=== PATIENT | male | born 1995 | race Caucasian/White ===

== ENCOUNTER 2018-08-29 08:25 | Emergency (ER) | payer BC ==
[~2018-08-29] VITALS: Ht 198.1 cm; Wt 90.0 kg
[~2018-08-29 08:25] MED LIST: PRED20TA PO
[2018-08-29 08:29] VITALS: BP 123/85
[2018-08-29] MEDS ORDERED: AZIT250T PO (09:07)
== END 2018-08-29 09:23 | disposition home or self-care (01) ==
LOC: ER 08:27
DX: J06.9 Acute upper respiratory infection, unspecified (principal); H92.09 Otalgia, unspecified ear; F12.10 Cannabis abuse, uncomplicated; J45.909 Unspecified asthma, uncomplicated; Z88.0 Allergy status to penicillin
CPT/HCPCS: 99283

== ENCOUNTER 2019-05-08 11:45 | Emergency (ER) | payer BC, OTHER ==
[~2019-05-08] VITALS: Ht 198.1 cm; Wt 88.6 kg
[~2019-05-08 11:45] MED LIST changes: +AZIT250T PO
[2019-05-08 12:17] LABS: BASOPHILS # (AUTO) 0.1 X10'3 (0-0.2); BASOPHILS % (AUTO) 0.5 % (0-1); EOSINOPHILS % (AUTO) 0.3 % (0-6); HEMATOCRIT 42.8 % (42.0-52.0); HEMOGLOBIN 14.5 g/dl (14.0-17.9); LYMPHOCYTES # (AUTO) 1.9 X10'3 (1.1-4.8); LYMPHOCYTES % (AUTO) 16.1 % (21-51); MEAN CORPUSCULAR HEMOGLOBIN 29.7 PG (27.0-31.0); MEAN CORPUSCULAR HGB CONC 33.9 g/dL (33.0-36.5); MEAN CORPUSCULAR VOLUME 87.5 FL (78-98); MEAN PLATELET VOLUME 9.1 FL (7.4-10.4); MONOCYTES # (AUTO) 1.1 X10'3 (0-0.9); MONOCYTES % (AUTO) 8.8 % (2-12); NEUTROPHILS # (AUTO) 8.8 X10'3 (1.8-7.7); NEUTROPHILS % (AUTO) 74.3 % (42-75); PLATELET COUNT 254 X10'3 (140-440); RED BLOOD COUNT 4.89 X10'6 (4.70-6.10); WHITE BLOOD COUNT 11.9 X10'3 (4.5-11.0)
[2019-05-08 12:28] LABS: PARTIAL THROMBOPLASTIN TIME 30 SECONDS (22-32)
[2019-05-08 12:37] LABS: ALANINE AMINOTRANSFERASE 24 U/L (12-78); ALBUMIN 4.2 G/DL (3.4-5.0); ALBUMIN/GLOBULIN RATIO 1.1 (1.1-1.5); ALKALINE PHOSPHATASE 68 IU/L (46-116); ANION GAP 11 (8-16); ASPARTATE AMINO TRANSFERASE 13 U/L (10-37); BLOOD UREA NITROGEN 11 MG/DL (7-18); BUN/CREATININE RATIO 13.6 (5.4-32.0); CALCIUM 9.5 MG/DL (8.5-10.1); CHLORIDE 104 MMOL/L (99-107); CREATININE 0.81 MG/DL (0.60-1.10); GLUCOSE 90 MG/DL (70-104); POTASSIUM 3.5 MMOL/L (3.5-5.1); SODIUM 140 MMOL/L (135-145); TOTAL PROTEIN 8.2 G/DL (6.4-8.2); eGFR > 90 ML/MIN
[2019-05-08 12:46] LABS: CLARITY,URINE CLEAR (Clear); COLOR,URINE YELLOW (Yellow); GLUCOSE, URINE NEGATIVE (Neg); KETONES,URINE TRACE mg/dl (Neg); LEUKOCYTE ESTERASE ,URINE NEGATIVE (Neg); NITRITES, URINE NEGATIVE (Neg); OCCULT BLOOD,URINE NEGATIVE (Neg); PH,URINE 5.5 (4.8-8.0); PROTEIN,URINE NEGATIVE (Neg); UROBILINOGEN,URINE 0.2 E.U/dL (0.2-1.0)
[2019-05-08 12:49] LABS: UA COLLECTION TYPE VOIDED
[2019-05-08] MEDS ORDERED: AZIT-72 PO (12:49)
[2019-05-08] MEDS ORDERED: PRED20TA PO (12:49)
[2019-05-08] MEDS ORDERED: ALBU8.5H8 IH (12:49)
[2019-05-08] MEDS ORDERED: ondansetron/PF 4mg/2ml inj IV ONE (12:50)
[2019-05-08] MEDS ORDERED: normal saline 1000ML IV soln IVB ONE (12:50)
[2019-05-08 13:44] VITALS: BP 132/86
== END 2019-05-08 13:44 | disposition home or self-care (01) ==
LOC: ER 11:46
DX: J01.90 Acute sinusitis, unspecified (principal); E86.0 Dehydration; J45.909 Unspecified asthma, uncomplicated; F12.90 Cannabis use, unspecified, uncomplicated; Z98.890 Other specified postprocedural states; Z88.0 Allergy status to penicillin; Z79.2 Long term (current) use of antibiotics; Z79.899 Other long term (current) drug therapy
CPT/HCPCS: 36415; 71045; 80053; 81003; 83605; 84145; 85025; 85610; 85730; 87040; 93005; 96361; 96374; 99284; J2405; J7030

== ENCOUNTER 2019-05-10 10:26 | Emergency (ER) | payer OTHER ==
[~2019-05-10] VITALS: Ht 198.1 cm; Wt 93.1 kg
[~2019-05-10 10:26] MED LIST changes: +ALBU8.5H8 IH; +AZIT-72 PO
--- NOTE | 2019-05-10 11:02 | NUR ---
PATIENT HERE DUE TO " DISTGUSTING GREEN SECRETIONS FROM MY SINUSES" PATIENT RECENTLY HERE AND ON ZITHROMAX
[2019-05-10] MEDS ORDERED: AZIT500T9 PO (11:29)
[2019-05-10 11:56] VITALS: BP 135/69
== END 2019-05-10 11:59 | disposition home or self-care (01) ==
LOC: ER 10:27
DX: J32.9 Chronic sinusitis, unspecified (principal); J45.909 Unspecified asthma, uncomplicated; F12.90 Cannabis use, unspecified, uncomplicated; Z98.890 Other specified postprocedural states; Z88.0 Allergy status to penicillin; Z79.2 Long term (current) use of antibiotics; Z79.899 Other long term (current) drug therapy
CPT/HCPCS: 99283

== ENCOUNTER 2019-05-18 13:46 | Emergency (ER) | payer SELFPAY ==
[~2019-05-18] VITALS: Ht 200.7 cm; Wt 90.9 kg
[~2019-05-18 13:46] MED LIST changes: +AZIT500T9 PO
[2019-05-18 13:56] VITALS: BP 125/86
[2019-05-18] MEDS ORDERED: ONDA4TAB6 PO (15:05)
[2019-05-18] MEDS ORDERED: LORA10TA61 PO (15:05)
== END 2019-05-18 15:17 | disposition home or self-care (01) ==
LOC: ER 13:46
DX: J32.9 Chronic sinusitis, unspecified (principal); J45.909 Unspecified asthma, uncomplicated; F12.90 Cannabis use, unspecified, uncomplicated; Z98.890 Other specified postprocedural states; Z88.0 Allergy status to penicillin; Z79.2 Long term (current) use of antibiotics; Z79.899 Other long term (current) drug therapy
CPT/HCPCS: 99283

== ENCOUNTER → 2019-08-29 | Emergency (ER) | payer OTHER ==
[~2019-08-29] VITALS: Ht 198.1 cm; Wt 90.9 kg
[~2019-08-29] MED LIST changes: +ALBU8.5H8 INH; -AZIT-72 PO; +IBUP-1984 PO; +LORA10TA61 PO; +ONDA4TAB6 PO
[2019-08-29 09:31] VITALS: BP 129/89
== END | disposition home or self-care (01) ==
LOC: ER 09:22
DX: M25.532 Pain in left wrist (principal); J45.909 Unspecified asthma, uncomplicated; F12.90 Cannabis use, unspecified, uncomplicated; F10.99 Alcohol use, unspecified with unspecified alcohol-induced disorder; Z98.890 Other specified postprocedural states; Z88.0 Allergy status to penicillin; Z79.899 Other long term (current) drug therapy; X50.0XXA Overexertion from strenuous movement or load, initial encounter; Y93.89 Activity, other specified; Y92.89 Other specified places as the place of occurrence of the external cause; Y99.0 Civilian activity done for income or pay; Y90.9 Presence of alcohol in blood, level not specified
CPT/HCPCS: 29125; 73110; 99283

== ENCOUNTER 2019-11-30 12:22 | Emergency (ER) | payer MEDICAID, OTHER ==
[~2019-11-30] VITALS: Ht 198.1 cm; Wt 85.5 kg
[~2019-11-30 12:22] MED LIST changes: -IBUP-1984 PO
[2019-11-30 12:27] VITALS: BP 131/91
--- NOTE | 2019-11-30 12:44 | NUR ---
US at bedside
[2019-11-30 13:08] LABS: CLARITY,URINE CLEAR (Clear); COLOR,URINE YELLOW (Yellow); GLUCOSE, URINE NEGATIVE (Neg); KETONES,URINE NEGATIVE (Neg); LEUKOCYTE ESTERASE ,URINE NEGATIVE (Neg); NITRITES, URINE NEGATIVE (Neg); OCCULT BLOOD,URINE TRACE-INTACT (Neg); PH,URINE 6.5 (4.8-8.0); PROTEIN,URINE NEGATIVE (Neg); UROBILINOGEN,URINE 0.2 E.U/dL (0.2-1.0)
[2019-11-30 13:13] LABS: UA COLLECTION TYPE CLN CATCH MIDSTREAM
[2019-11-30 13:18] LABS: BACTERIA,URINE NONE SEEN /HPF (Neg); MUCUS STRANDS FEW /LPF (Neg); RBC,URINE 0-2 /HPF (0-2); SQUAMOUS EPITHELIAL CELL,UR NONE SEEN /LPF (FEW); WBC,URINE 0-4 /HPF (0-4)
== END 2019-11-30 14:17 | disposition home or self-care (01) ==
LOC: ER 12:23
DX: N50.812 Left testicular pain (principal); N50.811 Right testicular pain; N43.40 Spermatocele of epididymis, unspecified; J45.909 Unspecified asthma, uncomplicated; Z72.89 Other problems related to lifestyle; Z60.2 Problems related to living alone; Z88.0 Allergy status to penicillin; Z79.2 Long term (current) use of antibiotics; Z79.899 Other long term (current) drug therapy
CPT/HCPCS: 76870; 81001; 99284

== ENCOUNTER 2021-07-21 19:09 | Emergency (ER) | payer MEDICAID, OTHER ==
[~2021-07-21] VITALS: Ht 198.1 cm; Wt 100.6 kg
[~2021-07-21 19:09] MED LIST changes: +ALBU8.5H17 IH; +ALBU8.5H17 INH; -ALBU8.5H8 IH; -ALBU8.5H8 INH
[2021-07-21 19:45] VITALS: BP 115/76
[2021-07-21] MEDS ORDERED: TETanus/Pertussis (Acell)/Diphther VAC/PF (Tdap-Adult) 0.5ml syringe IMVAC ONE (23:10)
== END 2021-07-21 23:33 | disposition home or self-care (01) ==
LOC: ER 19:10
DX: S61.011A Laceration without foreign body of right thumb without damage to nail, initial encounter (principal); J45.909 Unspecified asthma, uncomplicated; Z98.890 Other specified postprocedural states; Z72.89 Other problems related to lifestyle; Z60.2 Problems related to living alone; Z88.0 Allergy status to penicillin; Z79.2 Long term (current) use of antibiotics; Z20.3 Contact with and (suspected) exposure to rabies; Z79.899 Other long term (current) drug therapy; W45.8XXA Other foreign body or object entering through skin, initial encounter; Y93.89 Activity, other specified; Y92.89 Other specified places as the place of occurrence of the external cause; Y99.8 Other external cause status
CPT/HCPCS: 12001; 90471; 90715; 99283

== ENCOUNTER 2021-07-25 07:48 | Emergency (ER) | payer MEDICAID ==
[~2021-07-25] VITALS: Ht 198.1 cm; Wt 97.7 kg
[2021-07-25] MEDS ORDERED: NAPR-56 PO (10:29)
== END 2021-07-25 10:59 | disposition home or self-care (01) ==
LOC: ER 07:49
DX: S06.0X1A Concussion with loss of consciousness of 30 minutes or less, initial encounter (principal); M79.10 Myalgia, unspecified site; J45.909 Unspecified asthma, uncomplicated; Z88.0 Allergy status to penicillin; Z79.899 Other long term (current) drug therapy; V87.7XXA Person injured in collision between other specified motor vehicles (traffic), initial encounter; Y93.89 Activity, other specified; Y92.89 Other specified places as the place of occurrence of the external cause; Y99.8 Other external cause status
CPT/HCPCS: 70450; 72125; 72131; 99285

== ENCOUNTER 2022-06-16 17:55 | Emergency (ER) | payer MEDICAID, OTHER ==
[~2022-06-16] VITALS: Ht 198.1 cm; Wt 106.8 kg
[2022-06-16 18:14] VITALS: BP 126/75
[2022-06-16] MEDS ORDERED: predniSONE 20 mg tablet PO ONE (21:25)
[2022-06-16] MEDS ORDERED: ketorolac trometh. 30mg/ml inj. IM ONE (21:25)
[2022-06-17] MEDS ORDERED: PRED20TA PO (00:35)
== END 2022-06-17 03:47 | disposition home or self-care (01) ==
LOC: ER 17:56
DX: M51.26 Other intervertebral disc displacement, lumbar region (principal); J45.909 Unspecified asthma, uncomplicated; Z88.0 Allergy status to penicillin
CPT/HCPCS: 72131; 96372; 99284; J1885; J7512

== ENCOUNTER 2023-05-18 13:10 | Emergency (ER) | payer OTHER ==
[~2023-05-18] VITALS: Ht 198.1 cm; Wt 94.2 kg
[2023-05-18 13:25] VITALS: BP 128/83; PULSE 80; RESP 18; TEMP 99.8; O2SAT 94
== END 2023-05-18 14:59 | disposition home or self-care (01) ==
LOC: ER 13:11
DX: S61.210A Laceration without foreign body of right index finger without damage to nail, initial encounter (principal); J45.909 Unspecified asthma, uncomplicated; Z88.0 Allergy status to penicillin; Z79.2 Long term (current) use of antibiotics; Z79.899 Other long term (current) drug therapy; W45.8XXA Other foreign body or object entering through skin, initial encounter; Y93.89 Activity, other specified; Y92.89 Other specified places as the place of occurrence of the external cause; Y99.8 Other external cause status
CPT/HCPCS: 12001; 99282

== ENCOUNTER 2023-08-31 10:13 | Emergency (ER) | payer MEDICAID ==
[~2023-08-31] VITALS: Ht 193 cm; Wt 95.3 kg
[2023-08-31 10:14] VITALS: TEMP 98.1
[2023-08-31] MEDS ORDERED: ondansetron 4mg rapidly disintigrating tab PO ONE (10:20)
[2023-08-31 11:04] LABS: BASOPHILS % (AUTO) 0.2 % (0-1); EOSINOPHILS # (AUTO) 0.1 X10'3 (0-0.9); EOSINOPHILS % (AUTO) 0.4 % (0-6); HEMATOCRIT 50.3 % (42.0-52.0); HEMOGLOBIN 16.9 g/dl (14.0-17.9); LYMPHOCYTES # (AUTO) 0.6 X10'3 (1.1-4.8); LYMPHOCYTES % (AUTO) 3.4 % (21-51); MEAN CORPUSCULAR HEMOGLOBIN 29.3 PG (27.0-31.0); MEAN CORPUSCULAR HGB CONC 33.6 g/dL (33.0-36.5); MEAN CORPUSCULAR VOLUME 87.2 FL (78-98); MEAN PLATELET VOLUME 9.7 FL (7.4-10.4); MONOCYTES # (AUTO) 0.5 X10'3 (0-0.9); MONOCYTES % (AUTO) 2.7 % (2-12); NEUTROPHILS # (AUTO) 16.1 X10'3 (1.8-7.7); NEUTROPHILS % (AUTO) 93.3 % (42-75); PLATELET COUNT 228 X10'3 (140-440); RED BLOOD COUNT 5.77 X10'6 (4.70-6.10); RED CELL DISTRIBUTION WIDTH 13.3 % (11.5-14.5); WHITE BLOOD COUNT 17.2 X10'3 (4.5-11.0)
[2023-08-31 11:43] LABS: ALANINE AMINOTRANSFERASE 33 U/L (12-78); ALBUMIN 4.6 G/DL (3.4-5.0); ALKALINE PHOSPHATASE 72 IU/L (46-116); ANION GAP 13 (8-16); ASPARTATE AMINO TRANSFERASE 20 U/L (10-37); BILIRUBIN,TOTAL 2.2 MG/DL (0.1-1.0); BLOOD UREA NITROGEN 19 MG/DL (7-18); BUN/CREATININE RATIO 24.1 (10.0-20.0); CALCIUM 9.6 MG/DL (8.5-10.1); CHLORIDE 99 MMOL/L (99-107); CREATININE 0.79 MG/DL (0.60-1.10); GLUCOSE 100 MG/DL (70-104); POTASSIUM 3.3 MMOL/L (3.5-5.1); SODIUM 137 MMOL/L (135-145); TOTAL CARBON DIOXIDE 24.9 MMOL/L (24-32); TOTAL PROTEIN 9.3 G/DL (6.4-8.2); eCRCL 168 ML/MIN; eGFR > 90 ML/MIN
[2023-08-31] MEDS ORDERED: morphine 4 MG/ML inj SYRINge IV ONE ×3 (11:45→12:25)
[2023-08-31] MEDS ORDERED: ondansetron/PF 4mg/2ml inj IV ONE (11:45)
[2023-08-31 11:47] LABS: BILIRUBIN,URINE NEGATIVE (Neg); CLARITY,URINE CLEAR (Clear); COLOR,URINE YELLOW (Yellow); GLUCOSE, URINE NEGATIVE (Neg); KETONES,URINE NEGATIVE (Neg); LEUKOCYTE ESTERASE ,URINE NEGATIVE (Neg); NITRITES, URINE NEGATIVE (Neg); OCCULT BLOOD,URINE NEGATIVE (Neg); PROTEIN,URINE NEGATIVE (Neg)
[2023-08-31 11:48] LABS: UA COLLECTION TYPE CLN CATCH MIDSTREAM
[2023-08-31] MEDS ORDERED: iohexol 300mg/ml 100ml inj. ONE (11:54)
[2023-08-31] MEDS ORDERED: levoFLOXACIN-Levaquin 500mg/D5 100 ML IV SCH (12:05)
[2023-08-31] MEDS ORDERED: normal saline 1000ML IV soln IVB ONE (12:15)
[2023-08-31] MEDS ORDERED: ibuprofen tablet 400 MG TABLET PO ONE ×2 (12:25)
[2023-08-31] MEDS ORDERED: ketorolac tromethamine 15mg/ml inj. IV ONE (12:30)
[2023-08-31 13:13] VITALS: BP 137/92; PULSE 85; RESP 17; O2SAT 95
== END 2023-08-31 13:52 | disposition home or self-care (01) ==
LOC: ER 10:13
DX: K04.7 Periapical abscess without sinus (principal); J45.909 Unspecified asthma, uncomplicated; Z88.0 Allergy status to penicillin; Z79.899 Other long term (current) drug therapy
CPT/HCPCS: 70487; 80053; 81003; 83605; 84145; 85025; 87040; 96365; 96375; 96376; 99285; J1885; J1956; J2270; J2405; J3490; J7030; Q9967

== ENCOUNTER 2023-09-29 12:44 | Emergency (ER) | payer MEDICAID ==
[~2023-09-29] VITALS: Ht 198.1 cm; Wt 94.2 kg
[2023-09-29] MEDS ORDERED: proCHLORperazine 10 MG/2 ml inj IV ONE (13:35)
[2023-09-29] MEDS ORDERED: pantoprazole 40 MG vial IV ONE (13:35)
[2023-09-29] MEDS ORDERED: normal saline 1000ML IV soln IVB ONE (13:35)
[2023-09-29] MEDS ORDERED: ibuprofen 200mg tablet PO ONE (14:10)
[2023-09-29 15:12] LABS: ALANINE AMINOTRANSFERASE 19 U/L (12-78); ALBUMIN 3.5 G/DL (3.4-5.0); ALBUMIN/GLOBULIN RATIO 0.9 (1.1-1.5); ALKALINE PHOSPHATASE 47 IU/L (46-116); ANION GAP 8 (8-16); ASPARTATE AMINO TRANSFERASE 20 U/L (10-37); BILIRUBIN,TOTAL 2.6 MG/DL (0.1-1.0); BLOOD UREA NITROGEN 13 MG/DL (7-18); BUN/CREATININE RATIO 19.1 (10.0-20.0); CALCIUM 8.7 MG/DL (8.5-10.1); CHLORIDE 103 MMOL/L (99-107); CREATININE 0.68 MG/DL (0.60-1.10); GLUCOSE 95 MG/DL (70-104); SODIUM 138 MMOL/L (135-145); TOTAL CARBON DIOXIDE 26.8 MMOL/L (24-32); TOTAL PROTEIN 7.5 G/DL (6.4-8.2); eCRCL 205 ML/MIN; eGFR > 90 ML/MIN
[2023-09-29 15:17] LABS: MEAN PLATELET VOLUME 9.7 FL (7.4-10.4)
[2023-09-29 15:19] LABS: HEMATOCRIT 39.9 % (42.0-52.0); HEMOGLOBIN 13.8 g/dl (14.0-17.9); MEAN CORPUSCULAR HEMOGLOBIN 29.8 PG (27.0-31.0); MEAN CORPUSCULAR HGB CONC 34.6 g/dL (33.0-36.5); MEAN CORPUSCULAR VOLUME 85.9 FL (78-98); PLATELET COUNT 151 X10'3 (140-440); RED BLOOD COUNT 4.64 X10'6 (4.70-6.10); RED CELL DISTRIBUTION WIDTH 13.7 % (11.5-14.5); WHITE BLOOD COUNT 12.5 X10'3 (4.5-11.0)
[2023-09-29 15:35] LABS: TOTAL CELLS COUNTED 100
[2023-09-29 15:36] LABS: PLATELET ESTIMATE NORMAL
[2023-09-29] MEDS ORDERED: POTASSIUM BICARB 20meq eff tab 20 MEQ TABLET.EFF PO ONE (15:40)
[2023-09-29] MEDS ORDERED: POTA-207 PO (15:56)
[2023-09-29] MEDS ORDERED: ONDA8TAB13 PO (15:56)
[2023-09-29 16:07] VITALS: BP 122/88; PULSE 91; RESP 18; TEMP 98.2; O2SAT 98
== END 2023-09-29 16:08 | disposition home or self-care (01) ==
LOC: ER 12:44
DX: R42 Dizziness and giddiness (principal); R11.10 Vomiting, unspecified; Z20.822 Contact with and (suspected) exposure to COVID-19; R05.9 Cough, unspecified
CPT/HCPCS: 36415; 71046; 80053; 85007; 85025; 87502; 87503; 87811; 96361; 96374; 96375; 99284; C9113; J0780; J7030

== ENCOUNTER 2024-04-27 09:20 | Emergency (ER) | payer MEDICAID ==
[~2024-04-27] VITALS: Ht 198.1 cm; Wt 102.0 kg
[~2024-04-27 09:20] MED LIST changes: +ONDA-245 PO
[2024-04-27 09:23] VITALS: BP 130/88; PULSE 71; TEMP 98.2; O2SAT 98
[2024-04-27] MEDS: predniSONE 20 mg tablet PO ONE (09:52)
[2024-04-27 09:53] VITALS: RESP 16
[2024-04-27] MEDS ORDERED: INDO50CA96 PO (09:53)
[2024-04-27] MEDS ORDERED: ALLO100T PO (09:53)
[2024-04-27] MEDS: ketorolac trometh. 30mg/ml inj. IM ONE (09:53)
[2024-04-27] MEDS ORDERED: PRED20TA PO (09:53)
== END 2024-04-27 10:44 | disposition home or self-care (01) ==
LOC: ER 09:20
DX: M10.9 Gout, unspecified (principal); M79.671 Pain in right foot; M79.672 Pain in left foot; J45.909 Unspecified asthma, uncomplicated; Z88.0 Allergy status to penicillin; Z79.899 Other long term (current) drug therapy; Z79.2 Long term (current) use of antibiotics
CPT/HCPCS: 73630; 96372; 99283; J1885; J7512

== ENCOUNTER 2024-12-20 08:48 | Emergency (ER) | payer MEDICAID ==
[~2024-12-20] VITALS: Ht 198.1 cm; Wt 96.5 kg
[~2024-12-20 08:48] MED LIST changes: +INDO50CA96 PO
[2024-12-20 09:25] VITALS: BP 127/92; PULSE 64; RESP 18; TEMP 98.5; O2SAT 98
== END 2024-12-20 09:31 | disposition home or self-care (01) ==
LOC: ER 08:48
DX: R19.7 Diarrhea, unspecified (principal); J45.909 Unspecified asthma, uncomplicated; Z88.0 Allergy status to penicillin; Z79.52 Long term (current) use of systemic steroids; Z79.899 Other long term (current) drug therapy; Z72.89 Other problems related to lifestyle; Z98.890 Other specified postprocedural states; Z60.2 Problems related to living alone
CPT/HCPCS: 99281

== ENCOUNTER 2025-07-02 13:52 | Emergency (ER) | payer MEDICAID, OTHER ==
[~2025-07-02] VITALS: Ht 195.6 cm; Wt 93.4 kg
[2025-07-02 14:00] VITALS: BP 131/85; PULSE 76; RESP 18; TEMP 98.3; O2SAT 96
--- NOTE | 2025-07-02 14:36 | RADIOLOGY REPORT ---
EXAM: DI HAND,LIMITED (AP/LAT) CLINICAL INDICATION: injury TECHNIQUE: DI HAND,LIMITED (AP/LAT), left Comparison: WRIST, COMPLETE (3VW MIN) on DOS: 08/29/19 FINDINGS/IMPRESSION: There is no evidence of acute fracture or dislocation. The visualized joint space is well maintained. The alignment is anatomical. There is no radiopaque foreign body.
--- NOTE | 2025-07-02 15:09 | Physician Documentation ---
History of Present Illness ~ Chief Complaint: Hand pain Stated Complaint: THUMB INJURY WC Time Seen by MD: 14:16 Primary Medical Doctor: Sylvester Melchor HPI 30-year-old male presents to the ED with a complaint of left thumb pain after falling on a rack while at work. He states that has minor pain in the distal aspect of the left thumb denies any swelling numbness tingling or difficulties with the range of motion Tetanus within 5 years: Yes Medication Reconciliation Allergies: Coded Allergies: Penicillins (Verified Allergy, Unknown, 05/18/23) Scheduled Albuterol Sulfate (Proair Hfa), 2 PUFFS INH Q4HPRN Azithromycin (Zithromax), 1 DOSPAK PO UD Azithromycin (Azithromycin), 1 TAB PO DAILY Indomethacin (Indomethacin), 1 CAP PO Q8H Loratadine (Claritin), 1 TAB PO DAILY Ondansetron 8mg ODT (Ondansetron Odt), 1 TAB PO Q6H Ondansetron Hcl (Zofran), 1 TAB PO Q6H Prednisone* (Prednisone*), 40 MG PO DAILY Prednisone* (Prednisone*), 20 MG PO DAILY Scheduled PRN Albuterol Sulfate (Proair Hfa), 2 PUFFS IH Q4H PRN for SOB or wheezing Past Medical History Past Medical History: Asthma Past Surgical History: noncontributory, orthopedic surgeries Alcohol Use: Occasionally Drug Use: none Lives with: Alone Lives In: Home Occupation: employed Review of Systems All Other Systems at this time: Reviewed and Negative ROS As stated above in the HPI, otherwise all systems are reviewed and negative. Physical Exam Vital Signs: Temperature: 98.3, Source: Temporal, Heart Rate: 76, Respiratory Rate: 18, BP: 131/85, Pulse Oximetry: 96, Weight: 93.400 Oxygen Flow Rate: 0 Physical Exam General: Alert, no apparent distress. Extremities: Normal range of motion, no deformity. Neurologic: Oriented x4. Psychiatric: Normal mood and affect. Skin: Normal color, warm and dry. No edema, no ecchymosis. Progress Results/Orders Results/Orders Vital Signs 07/02/25 14:00 Temp 98.3 Pulse 76 Resp 18 B/P (MAP) 131/85 Pulse Ox 96 O2 Flow Rate 0 Medical Decision Making Findings Not appreciate any signs of acute fracture in his patient's thumb via his x-ray suspect he either jammed it or caused a contusion. I do not see any reason not to release him back to work Departure Disposition: 01 HOME / SELF CARE / HOMELESS Impression: Primary Impression: Hand pain Condition: Stable Discharge Instructions: Contusion (Bruise) Additional Instructions: There was no fracture in your x-ray I do not see any reason why he can not go back to work at this time. Referrals: NO PRIMARY CARE PROVIDER (PCP) Education Educated: Patient Educated regarding: diagnosis Signature Scribe Signature: v Attestation: Scribed for Penelope Turner Mission Manager by Penelope Quesada NP . 07/02/25 23:03 PENELOPE TURNER NP Jul 02, 2025 15:09
== END 2025-07-02 15:35 | disposition home or self-care (01) ==
LOC: ER 13:52
DX: M79.645 Pain in left finger(s) (principal); J45.909 Unspecified asthma, uncomplicated; Z88.0 Allergy status to penicillin; Z79.899 Other long term (current) drug therapy; Z72.89 Other problems related to lifestyle; Z98.890 Other specified postprocedural states; Z60.2 Problems related to living alone
CPT/HCPCS: 73120; 99283

== ENCOUNTER 2025-09-20 09:06 | Emergency (ER) | payer SELFPAY ==
[~2025-09-20] VITALS: Ht 195.6 cm; Wt 92.7 kg
--- NOTE | 2025-09-20 09:35 | Physician Documentation ---
History of Present Illness ~ Chief Complaint: Cold, cough & congestion Stated Complaint: BRONCHITIS Time Seen by MD: 09:25 Primary Medical Doctor: Sylvester Melchor Source: patient Mode of Arrival: POV Exam Limitations: no limitations HPI 30-year-old with history of bronchitis and pneumonia just finished his ant ibiotic 2 days ago. Patient was 1st on Zithromax and then doxycycline. Finish doxycycline 2 days ago. Patient states that his cough and chest tightness is worse. Patient states that he has history of asthma and has been using his albuterol inhaler more than every 4 hours. No chest pain no fevers Medication Reconciliation Allergies: Coded Allergies: Penicillins (Verified Allergy, Unknown, 09/20/25) Scheduled Albuterol Sulfate (Proair Hfa), 2 PUFFS INH Q4HPRN Azithromycin (Zithromax), 1 DOSPAK PO UD Azithromycin (Azithromycin), 1 TAB PO DAILY Indomethacin (Indomethacin), 1 CAP PO Q8H Loratadine (Claritin), 1 TAB PO DAILY Ondansetron 8mg ODT (Ondansetron Odt), 1 TAB PO Q6H Ondansetron Hcl (Zofran), 1 TAB PO Q6H Prednisone* (Prednisone*), 40 MG PO DAILY Prednisone* (Prednisone*), 20 MG PO DAILY Scheduled PRN Albuterol Sulfate (Proair Hfa), 2 PUFFS IH Q4H PRN for SOB or wheezing Past Medical History Past Medical History: Asthma Past Surgical History: noncontributory, orthopedic surgeries Alcohol Use: Occasionally Drug Use: none Lives with: Alone Lives In: Home Occupation: employed Review of Systems All Other Systems at this time: Reviewed and Negative Respiratory: Reports: see HPI Physical Exam Vital Signs: RN Vital Signs have been reviewed: Yes, Temperature: 98.0, Source: Temporal, Heart Rate: 86, Respiratory Rate: 18, BP: 124/82, Pulse Oximetry: 99, Weight: 92.700 Oxygen Flow Rate: 0 Physical Exam General: Alert, no apparent distress. HEENT: moist mucous membranes. Neck: Full range of motion. Respiratory: No respiratory distress speaking in full sentences bronchospasm with cough moderate wheezing throughout posteriorly Chest: No accessory muscle use. Cardiovascular: Appears well perfused Neurologic: Oriented x4. Psychiatric: Normal mood and affect. Skin: Normal color, warm and dry. No edema, no ecchymosis. Progress Results/Orders Results/Orders Orders - BRIT BABCOCK [employer] Chest,Single View (09/20/25 09:36) Svn Treatment (09/20/25 09:32) Completed Orders - BRIT BABCOCK [employer] Chest,Single View (09/20/25 09:36) Albuterol 2.5mg/3ml Nebule (Proventil 2. (09/20/25 09:35) Medications Received in ER Medications (Trade) Dose Ordered Sig/Yuridia Route PRN Reason Start Time Stop Time Status Last Admin Dose Admin (Proventil 2.5 MG/3ML nebule) 2.5 mg ONCE ONCE NEB 09/20/25 09:35 09/20/25 09:37 DC 09/20/25 10:11 2.5 MG Vital Signs 09/20/25 09/20/25 09/20/25 09:15 10:11 10:18 Temp 98.0 Pulse 86 89 96 Resp 18 16 16 B/P (MAP) 124/82 Pulse Ox 99 96 97 O2 Delivery Room Air* Room Air* O2 Flow Rate 0 0 0 FiO2 21 21 EKG/XRAY/CT/US/VASC/MRI Chest X-Ray : Additional Comments DI CHEST,SINGLE VIEW, HISTORY: SOB COMPARISON: DI CHEST,TWO VIEWS on DOS: 09/29/23, CHEST,SINGLE VIEW on DOS: 05/08/19 DI CHEST,TWO VIEWS on DOS: 09/29/23, CHEST,SINGLE VIEW on DOS: 05/08/19 TECHNICAL DATA: 1 view of the chest was obtained. FINDINGS: Lines and tubes: None Cardiomediastinal silhouette: normal Pulmonary vasculature: normal Lung expansion: normal Lung airspace: normal Lung interstitium: normal Pleura: normal Pneumothorax: no Bones: Unremarkable Other: no IMPRESSION: No acute intrathoracic abnormality. Medical Decision Making Additional information obtaine: old records Findings Patient just completed antibiotics for bronchitis and pneumonia. Chest x-ray to evaluate further patient with wheezes. Breathing treatment differentials do include asthma exacerbation. Refill treatment improved chest tightness. X-ray was unremarkable for any infiltrates. We will start patient on prednisone for asthma exacerbation with follow up with primary care Differential Dx:Considerations: Include: Allergic rhinitis, Influenza, Pneumonia, Pnuemonitis, Sinusitis, URI, Other Departure Time of Disposition: 10:21 Disposition: 01 HOME / SELF CARE / HOMELESS Impression: Primary Impression: Asthma with Exacerbation Condition: Stable Discharge Instructions: Asthma, Adult, [id number] Additional Instructions: X-ray was clear for any signs of pneumonia. This is likely asthma exacerbation where prednisone we will be more effective to help with the tightness and coughing. Monitor for any new or worsening symptoms and follow up with primary care in 2-3 days. Referrals: NO PRIMARY CARE PROVIDER (PCP) Prescriptions Prednisone (Prednisone) 10 Mg Tablet 0 PO DAILY, #42 TABLET Take 6 tabs/day x2 days then 5 daily x2 days 4 daily x2 days 3 daily x2 days 2 daily x2 days 1 daily x2 days then stop. Prov: BRIT BABCOCK NP 09/20/25 Education Educated: Patient Educated regarding: diagnosis, treatment, need for follow up Signature Scribe Signature: No scribe Attestation: The note accurately reflects work and decisions made by me.Brit HERNANDEZ 09/20/25 09:35 BRIT BABCOCK NP Sep 20, 2025 09:35
[2025-09-20 10:11] VITALS: PULSE 89; RESP 16; O2SAT 96
[2025-09-20] MEDS: albuterol 2.5 MG/3 ML nebule NEB ONE (10:11)
--- NOTE | 2025-09-20 10:13 | RADIOLOGY REPORT ---
DI CHEST,SINGLE VIEW, HISTORY: SOB COMPARISON: DI CHEST,TWO VIEWS on DOS: 09/29/23, CHEST,SINGLE VIEW on DOS: 05/08/19 DI CHEST,TWO VIEWS on DOS: 09/29/23, CHEST,SINGLE VIEW on DOS: 05/08/19 TECHNICAL DATA: 1 view of the chest was obtained. FINDINGS: Lines and tubes: None Cardiomediastinal silhouette: normal Pulmonary vasculature: normal Lung expansion: normal Lung airspace: normal Lung interstitium: normal Pleura: normal Pneumothorax: no Bones: Unremarkable Other: no IMPRESSION: No acute intrathoracic abnormality.
[2025-09-20 10:18] VITALS: PULSE 96; RESP 16; O2SAT 97
[2025-09-20] MEDS ORDERED: PRED10TA23 PO (10:27)
[2025-09-20 10:41] VITALS: BP 154/95; PULSE 77; RESP 16; TEMP 98; O2SAT 97
== END 2025-09-20 10:37 | disposition home or self-care (01) ==
LOC: ER 09:07
DX: J45.901 Unspecified asthma with (acute) exacerbation (principal); Z88.0 Allergy status to penicillin; Z79.899 Other long term (current) drug therapy; Z72.89 Other problems related to lifestyle; Z98.890 Other specified postprocedural states; Z60.2 Problems related to living alone
CPT/HCPCS: 71045; 94640; 99283; J7512; 94760